=== PATIENT | female | born 1980 | race Caucasian/White ===

== ENCOUNTER 2017-02-09 06:12 | Inpatient (IN) | payer BC ==
[~2017-02-09 06:12] MED LIST: Buffered Lidocaine 0.9% SYRIN* 5 ML/SYR SYRINGE ONE; Clindamycin 900 MG IVPREMIX(* 900 MG/50 ML SDV IV ONE; Famotidine TAB* 20 MG ONE; Metoclopramide TAB* 10 MG ONE; ceFAZolin 2 GM PREMIX(*) 2 GM/50 ML BAG IVPB ONE
[2017-02-09] MEDS ORDERED: Heparin VIAL(*) 5000 UNITS/ML VIAL (FIVE THOUSAND) ONE (06:14)
[2017-02-09] MEDS ORDERED: ceFAZolin 2 GM PREMIX(*) 2 GM/50 ML BAG IVPB ONE (07:00)
[2017-02-09] MEDS ORDERED: ceFAZolin VIAL(*) 1 GM in NS 0.9% 50 ML* 50 ML IVPB ONE (07:30)
[2017-02-09] MEDS ORDERED: diPHENhydraMINE IV* 50 MG/ML 1 ml VIAL (BENADRYL) SLOW PUSH PRN (10:11)
[2017-02-09] MEDS ORDERED: Acetaminophen ADULT LIQ* 650 MG/20.3 ML UDC PO PRN (10:11)
[2017-02-09] MEDS ORDERED: HYDROmorphone* 1 MG/ML 1 ML SYR IV PRN ×2 (10:11)
[2017-02-09] MEDS ORDERED: HYDROcodone/ACET. 7.5/325 LIQ* 15 ML UDC PO PRN (10:11)
--- NOTE | 2017-02-09 10:20 | SURGPN ---
Brief Operative Note - Surgery Procedures: PREOP/POSTOP: MORBID OBESITY PROC: LRYGB SURG: MECENAS ASSIST: MECENAS ANES: GET; BYLEBYL EBL: 100ML IVF: 2.7 L LR SPEC: NONE DRAIN: NONE COMPL: NONE COND: STABLE TO RR; EXTUBATED. FINDINGS: NORMAL ANATOMY.
[2017-02-09] MEDS ORDERED: Acetaminophen IV 1GM/100ML * 100 ML ONE (10:26)
[2017-02-09] MEDS ORDERED: Ondansetron INJ* 2 MG/ML VIAL ONE (10:41)
[2017-02-09] MEDS ORDERED: Scopolamine 1.5 mg* PATCH ONE (10:41)
[2017-02-09] MEDS ORDERED: HYDROmorphone* 1 MG/ML 1 ML SYR ONE (11:11)
--- NOTE | 2017-02-09 12:30 | OP ---
CC: Gian Hou MD * DATE OF OPERATION: 02/09/17 - ROOM #353 DATE OF : 82 SURGEON: Pablo Dominguez MD ALTERNATIVE FINANCING SPECIALIST: Dr. Gamez. ANESTHESIOLOGIST: Dr. Aguila. ANESTHESIA: General endotracheal. PRE-OPERATIVE DIAGNOSIS: Morbid obesity. POST-OPERATIVE DIAGNOSIS: Morbid obesity. OPERATIVE PROCEDURE: Laparoscopic Jordi-en-Y gastric bypass. ESTIMATED BLOOD LOSS: 100 mL. IV FLUIDS: 2.7 L of crystalloid. SPECIMEN: None. DRAINS: None. COMPLICATIONS: None. COUNTS: The instrument, needle, and sponge counts were correct. DESCRIPTION OF PROCEDURE: The patient was brought to the operating room and placed on the table supine. Sequential compression devices were placed on both lower extremities. General anesthesia was administered. Camacho catheter was placed. The abdomen was prepped and draped in the usual sterile fashion and she received appropriate intravenous antibiotics. Time-out was performed. Local anesthetic was infiltrated into the skin and soft tissue prior to making each incision. Entry into the abdomen was through a left upper quadrant incision accommodating a 12-mm optical trocar. After accessing the peritoneal cavity, carbon dioxide was insufflated to a pressure of 15 mmHg. Under direct visualization, bladeless 12-mm trocars were placed supraumbilically in the midline and in the right upper quadrant. Bladeless 5-mm trocars were placed in the right upper quadrant medially and in the left upper quadrant laterally. A Huber liver retractor was placed percutaneously in the subxiphoid position and was used to elevate the left lobe of the liver. The gastric anatomy appeared normal. The cardia of the stomach was mobilized away from the left rios of the diaphragm using blunt dissection and LigaSure and after this was freed, a perigastric dissection was undertaken on the lesser curvature to enter the lesser sac. The gastric pouch was fashioned with several firings of the Endo REAL stapler with rao cartridges, the first going transversely across the stomach and the remaining firings were oriented towards the angle of His to create a pouch approximately 20 to 30 mL volume. The staple lines were noted to be intact and hemostatic. The omentum and transverse colon were retracted superiorly and the ligament of Treitz was identified. The jejunum was measured out 50 mm. At this point, the jejunum was sutured to the left lateral aspect of the gastric pouch. The gastric jejunostomy was performed using the 30 mm rao Endo REAL stapler. The side -to-side anastomosis was completed and then the common enterotomy was run closed with 3-0 Maxon over a 36-Yi orogastric tube. The loop was then divided to the left of the anastomosis to complete it and then the anastomosis was tested with methylene blue dye solution instilled through the orogastric tube. No leak was identified. The Jordi limb was then measured out for 75 cm and a functional end-to-side jejunojejunostomy was created with the 60 mm rao cartridge. The common enterotomy was again run closed with 3-0 Maxon and then the mesenteric defect closed with 3-0 silk in [id number] fashion. Lastly inspection revealed hemostasis to be excellent. The orientation of the bowel was confirmed and the liver retractor was then removed under direct visualization. Carbon dioxide was released. Skin incisions were closed with lupe and dressings applied. The patient tolerated the procedure well, was extubated and transferred to Recovery in a stable condition. [id number]/[facility] #: [id number] OSMEL
[2017-02-09] MEDS: Heparin VIAL(*) 5000 UNITS/ML VIAL (FIVE THOUSAND) SUBCUT SCH ×2 (14:58→21:30)
[2017-02-09] MEDS: Ketorolac INJ* 30 MG/ML 1 ML VIAL IV PRN (19:19)
[2017-02-09] MEDS: Ondansetron INJ* 2 MG/ML VIAL IV PRN (19:20)
[2017-02-10] MEDS: Heparin VIAL(*) 5000 UNITS/ML VIAL (FIVE THOUSAND) SUBCUT SCH ×3 (05:42→22:15)
[2017-02-10] MEDS: Ketorolac INJ* 30 MG/ML 1 ML VIAL IV PRN (05:49)
[2017-02-10] MEDS: Ondansetron INJ* 2 MG/ML VIAL IV PRN ×3 (05:56→22:15)
--- NOTE | 2017-02-10 08:48 | PN ---
Progress Note - Progress Note SOAP: Subjective: Feels ok. Pain controlled. Some nausea, no vomiting. Objective: [] Vital Signs Temp 98.3 F 02/10/17 04:12 Pulse 50 02/10/17 04:12 Resp 18 02/10/17 04:12 BP 114/61 02/10/17 04:12 Pulse Ox 98 02/10/17 04:12 NAD Abd: ND, soft, incis c/d/i, dressings intact. Tender in RUQ and epigastrium. Intake & Output 02/09/17 02/10/17 02/10/17 18:59 06:59 18:59 Intake Total 3400 1938 Output Total 375 2200 Balance 3025 -262 Weight 296 lb Intake: IV Fluids 3400 1938 LR 3400 1938 Oral 0 0 Output: Faith 375 2200 Other: # Bowel Movements 0 Assessment: POD#1 Plan: Adv diet. D/c faith. Amb. Home in am.
[2017-02-10] MEDS ORDERED: Famotidine IV* 10 MG/ML 2 ML (20 mg) ONE ×2 (10:48→23:20)
[2017-02-10] MEDS: D5W NS 0.9% 20Meq KCL 1000 ML* 1,000 ML IV SCH ×2 (12:18→22:15)
[2017-02-11] MEDS: Heparin VIAL(*) 5000 UNITS/ML VIAL (FIVE THOUSAND) SUBCUT SCH (05:35)
--- NOTE | 2017-02-11 08:19 | PN ---
Progress Note - Progress Note Date of Service: 02/11/17 SOAP: Subjective:POD#3 taking clears,ambulating,denies pain,passing flatus,wants to go home [] Objective:lungs:clear bilat heart:RRR Abd:+bs,soft,incisions C/D/I,no erythema; Ext:nontender Vital Signs Temp 98.0 F 02/11/17 03:46 Pulse 50 02/11/17 03:46 Resp 18 02/11/17 03:46 BP 113/58 02/11/17 03:46 Pulse Ox 95 02/11/17 03:46 Intake & Output 02/10/17 02/11/17 02/11/17 18:59 06:59 18:59 Intake Total 1244 1069 Output Total 450 1400 Balance 794 -331 Intake: IV Fluids 1034 909 D5W NS 20 meq KCL 909 LR 1034 IVPB 50 zofran 50 Oral 210 110 Output: Urine 450 1400 Camacho 0 Other: # Bowel Movements 0 [] Assessment:Doing well s/p lap gastric bypass [] Plan:Discharge today,instructions reviewed,OV 7-10days []
[2017-02-11 08:35] VITALS: BP 99/56
[2017-02-11] MEDS ORDERED: Famotidine IV* 10 MG/ML 2 ML (20 mg) ONE (10:40)
--- NOTE | 2017-02-12 06:32 | DS ---
CC: Dr. Gian Hou* DISCHARGE SUMMARY: DATE OF ADMISSION: 02/09/17 DATE OF DISCHARGE: 02/11/17 ATTENDING SURGEON: Dr. Pablo Dominguez. HOSPITAL COURSE: Please refer to admission history and physical for admission details. The patient was taken to the operating room on 02/09/17, and underwent laparoscopic Jordi-en-Y gastric bypass by Dr. Dominguez. She had an uneventful postoperative course and required minimal pain medication and was able to meet the criteria for oral intake of bariatric clear liquids. She was ambulating in the halls and using her Inspiron. She was seen earlier this morning by myself and Dr. Dominguez and she met criteria for discharge. PHYSICAL EXAMINATION: General: Well appearing, in no acute distress. Vital Signs: Stable, afebrile. O2 saturation on room air 95%. Lungs: Breath sounds bilaterally clear and equal. Heart: Regular rate and rhythm. No murmurs or rubs appreciated. Abdomen: Laparoscopic port sites are intact with surgical lupe. No drainage. No erythema, minimal ecchymosis; active bowel sounds, soft with minimal incisional tenderness. Extremities: No edema. Nontender calf. IMPRESSION: Postop day 2, status post laparoscopic Jordi-en-Y gastric bypass, doing extremely well. PLAN: Discharge home today. Instructions were reviewed with the patient. She will call our office to set up a followup visit within 1 week. She has a prescription for Lortab elixir as needed and may use [id number] liquid Tylenol for mild pain. CARMEN VELASCO, SACHI [id number]/[facility] #: [id number] OSMEL
== END 2017-02-11 11:45 | disposition home or self-care (01) | DRG 403 ==
LOC: AA 06:12 → SSU 12:01
PROVIDERS: ADMIT Surgery; ATTEND Surgery
PROC: 0D164ZA Bypass Stomach to Jejunum, Percutaneous Endoscopic Approach (ICD-10-PCS; principal; 2017-02-09 07:45)
DX: E66.01 Morbid (severe) obesity due to excess calories (principal); K76.0 Fatty (change of) liver, not elsewhere classified; Z68.41 Body mass index [BMI] 40.0-44.9, adult; R73.03 Prediabetes; K21.9 Gastro-esophageal reflux disease without esophagitis; M19.90 Unspecified osteoarthritis, unspecified site; F95.8 Other tic disorders; G25.2 Other specified forms of tremor; Z79.1 Long term (current) use of non-steroidal anti-inflammatories (NSAID); Z79.899 Other long term (current) drug therapy; Z83.3 Family history of diabetes mellitus; Z87.891 Personal history of nicotine dependence
CPT/HCPCS: 94760; A9270-GY; C1776; J0690; J1170; J1644; J1885; J2405

== ENCOUNTER 2017-05-15 19:04 | Emergency (ER) | payer BC ==
[2017-05-15] MEDS ORDERED: NS 0.9% 1000 ML* 1,000 ML IV ONE (19:35)
[2017-05-15 19:53] LABS: Hematocrit 41 % (35-47); Hemoglobin 14.1 g/dl (12.0-16.0); Mean Corpuscular HGB Conc 35 g/dl (31-36); Mean Corpuscular Hemoglobin 31 pg (27-31); Mean Corpuscular Volume 89 fL (80-97); Mean Platelet Volume 9 um3 (7.4-10.4); Red Blood Count 4.55 10^6/ul (4.0-5.4); Red Cell Distribution Width 14 % (10.5-15)
[2017-05-15 20:09] LABS: ALT 13 U/L (7-52); AST 12 U/L (13-39); Alkaline Phosphatase 39 U/L (34-104); Anion Gap 6 mmol/L (2-11); BUN/Creatinine Ratio 11.1 (8-20); Blood Urea Nitrogen 6 mg/dL (6-24); CO2 Carbon Dioxide 25 mmol/L (22-32); Calcium 9.5 mg/dL (8.6-10.3); Chloride 107 mmol/L (101-111); EGFR African American 164.3 (>60); EGFR Non-African American 127.7 (>60); Globulin 2.6 g/dL (2-4); Glucose 114 mg/dL (70-100); Lipase 14 U/L (11.0-82.0); Potassium 3.5 mmol/L (3.5-5.0); Sodium 138 mmol/L (133-145); Total Protein 6.6 g/dL (6.4-8.9)
[2017-05-15] MEDS ORDERED: Iohexol 300* (CONTRAST) 10 ML SDV IV ONE (20:25)
[2017-05-15 21:35] LABS: Urine Bilirubin Negative (Negative); Urine Glucose Negative (Negative); Urine Nitrite Negative (Negative)
--- NOTE | 2017-05-16 00:40 | ED ---
Ghassan Sky Angela, scribed for Masoud Teran on 05/15/17 at 1936 . Abdominal Pain/Female - HPI Summary HPI Summary: This pt is a 37 y/o female presenting to [facility] c/o lower left sided abd pain since last night. Pt report her pain is constant and radiates to her legs. She notes associated symptoms of nausea and vomiting, she had 1 episode of emesis last night. Her pain is aggravated with ambulation. She rates her pain at its best 6 out of 10 in severity, and at its worse 10 out of 10 in severity. Pt denies diarrhea, hematuria, vaginal discharge, fever, chest pain, SOB. PSHx: gastric bypass on 02/09/17 at [facility]. - History of Current Complaint Chief Complaint: EDAbdPain Stated Complaint: STOMACH/LEG PAIN Time Seen by Provider: 05/15/17 19:26 Hx Obtained From: Patient ?: No Onset/Duration: Lasting Days - 1 Timing: Days - 1 Pain Intensity: 6 Pain Scale Used: 0-10 Numeric Location: Discrete At: LLQ Radiates: Yes Radiates to: Other - legs Character: Cramping Aggravating Factor(s): Other: - ambulating Associated Signs and Symptoms: Positive: Nausea, Vomiting, Other: - radiating to her legs. Negative: Fever, Chest Pain, Back Pain, Urinary Symptoms, Vaginal Bleeding, Vaginal Discharge, Diarrhea Allergies/Adverse Reactions: Allergies Allergy/AdvReac Type Severity Reaction Status Date / Time No Known Allergies Allergy Verified 05/15/17 19:13 PMH/Surg Hx/FS Hx/Imm Hx Endocrine/Hematology History: Denies: Hx Anticoagulant Therapy, Hx Diabetes, Hx Thyroid Disease Cardiovascular History: Denies: Hx Congestive Heart Failure, Hx Hypertension, Hx Pacemaker/ICD Respiratory History: Denies: Hx Asthma, Hx Chronic Obstructive Pulmonary Disease (COPD) History: Denies: Hx Renal Disease Musculoskeletal History: Reports: Hx Arthritis - KNEES Sensory History: Reports: Hx Contacts or Glasses - GLASSES Denies: Hx Hearing Aid Opthamlomology History: Reports: Hx Contacts or Glasses - GLASSES Neurological History: Reports: Other Neuro Impairments/Disorders - TIC- UPPER HALF OF BODY SHAKES LASTS A COUPLE OF SECONDS Denies: Hx Dementia, Hx Seizures Psychiatric History: Denies: Hx Panic Disorder, Hx Substance Abuse - Surgical History Surgery Procedure, Year, and Place: left ankle x2, gastric bypass. Hx Anesthesia Reactions: No Infectious Disease History: No Infectious Disease History: Denies: Hx Hepatitis, Hx Human Immunodeficiency Virus (HIV), Traveled Outside the [place] in Last 30 Days - Family History Known Family History: Positive: Diabetes - father, Other - Mother: brain tumor - Social History Alcohol Use: Rare Hx Substance Use: No Substance Use Type: Reports: None Hx Tobacco Use: Yes Smoking Status (MU): Former Smoker Amount Used/How Often: 1 PPD X 2 YEARS Have You Smoked in the Last Year: No Review of Systems Negative: Fever, Chills Negative: Chest Pain Negative: Shortness Of Breath Positive: Abdominal Pain, Vomiting, Nausea. Negative: Diarrhea Negative: dysuria, hematuria, other - vaginal discharge Positive: Other - pain radiating to her legs All Other Systems Reviewed And Are Negative: Yes Physical Exam Triage Information Reviewed: Yes Vital Signs On Initial Exam: Initial Vitals Temp Pulse Resp BP Pulse Ox 98.9 F 77 16 99/72 99 05/15/17 19:13 05/15/17 19:13 05/15/17 19:13 05/15/17 19:13 05/15/17 19:13 Vital Signs Reviewed: Yes Appearance: Positive: Well-Appearing, Pain Distress Skin: Positive: Warm, Skin Color Reflects Adequate Perfusion, Dry Head/Face: Positive: Normal Head/Face Inspection Eyes: Positive: EOMI, HERMINIO ENT: Positive: Normal ENT inspection Neck: Positive: Supple, Nontender Respiratory/Lung Sounds: Positive: Clear to Auscultation, Breath Sounds Present Cardiovascular: Positive: RRR, Pulses are Symmetrical in both Upper and Lower Extremities Abdomen Description: Positive: Soft, Other: - LLQ tenderness Bowel Sounds: Positive: Present Musculoskeletal: Positive: Normal, Strength/ROM Intact Neurological: Positive: Normal, Sensory/Motor Intact, Alert, Oriented to Person Place, Time - Luis Coma Scale Coma Scale Total: 15 Diagnostics - Vital Signs Vital Signs Temp Pulse Resp BP Pulse Ox 05/15/17 19:13 98.9 F 77 16 99/72 99 - Laboratory Result Diagrams: 05/15/17 19:44 05/15/17 19:44 Lab Statement: Any lab studies that have been ordered have been reviewed, and results considered in the medical decision making process. - CT Abd/pel CT CT Interpretation: Positive (See Comments) - IMPRESSION: 5 cm left ovarian cyst , advise further evaluation with ultrasound. Small complex physiologic free fluid cul-de-sac, probably physiologic. Surgical changes stomach. No bowel obstruction, colitis, diverticulitis, or free air. Normal appendix. Unremarkable pancreas, kidneys, and gallbladder. ED physician has reviewed this radiology report and agrees. CT Interpretation Completed By: Radiologist - Additional Comments Diagnostic Additional Comments: Pelvic US Impression: 5.1 cm hemorrhagic cyst left ovary, advise followup in 6 or 10 weeks to assess for resolution. No left ovarian torsion. Color flow with appropriate arterial and venous waveforms. Right ovary not seen. Small physiologic free fluid cul-de-sac. 2.4 cm posterior fundal fibroid in uterus. Endometrial stripe complex 20 mm thick. Unremarkable visualized portion of bladder. ED physician has reviewed this radiology report and agrees. Abdominal Pain Fem Course/Dx - Course Course Of Treatment: Pt is a 37 y/o female presenting to [facility] c/o lower left sided abd pain since last night with radiation to her legs. She notes associated symptoms of nausea and vomiting. Bloodwork and abdomen/pelvis CT were obtained. CT shows 5 cm left ovarian cyst, advise further evaluation with ultrasound. US shows 5.1 cm hemorrhagic cyst left ovary. pt will be discharge with follow up from [facility]. - Diagnoses Provider Diagnoses: Ovarian cyst, Abdominal pain Discharge - Discharge Plan Condition: Stable Disposition: HOME Patient Education Materials: Ovarian Cyst (ED) Referrals: Gian Hou MD [Primary Care Provider] - Tatianna Payton MD [Medical Doctor] - Additional Instructions: Please follow up with Dr. Payton, from [facility]. The documentation as recorded by the Ghassan womack Angela accurately reflects the service I personally performed and the decisions made by , Masoud Teran.
[2017-05-16 01:07] VITALS: BP 105/70
--- NOTE | 2017-05-16 07:46 | RAD ---
CLINICAL HISTORY: Diverticulitis COMPARISON: April 21, 2017 TECHNIQUE: Multiple contiguous axial CT scans were obtained of the abdomen and pelvis after the administration of intravenous contrast. Coronal and sagittal multiplanar reformations are submitted for review. Oral contrast was administered. Delayed images were obtained through the abdomen and pelvis. FINDINGS: LUNG BASES: The lung bases are clear. LIVER: The liver is diffusely low in attenuation compared to the spleen. There are no focal hepatic parenchymal masses. The liver is enlarged measuring 23 cm in long axis. BILE DUCTS: There is no intrahepatic or extrahepatic biliary dilatation. GALLBLADDER: The gallbladder is normal, without pericholecystic inflammatory change. PANCREAS: The pancreas is normal, without mass or ductal dilatation. SPLEEN: The spleen is mildly enlarged measuring 14.5 x 13 x 6 cm in size. UPPER GI TRACT: Evaluation of the gastrointestinal tract is limited by incomplete gastric distention. There is post surgical change to the upper GI tract SMALL BOWEL AND MESENTERY: The small bowel is normal in contour, course, and caliber. There is no obstruction or dilatation. COLON: The colon is normal in contour, course, caliber. There is no pericolonic inflammatory change. A normal appendix this is best seen on axial images 57-62 ADRENALS: Normal bilaterally. KIDNEYS: The kidneys are normal in shape, size, contour, and axis. There is no hydronephrosis or nephrolithiasis. BLADDER: The bladder is smooth in contour. PELVIC ORGANS: There is a 5.2 cm left ovarian cyst. There is a small amount of fluid within the pelvic cul-de-sac measuring approximately 30 Hounsfield units in attenuation AORTA: The aorta is normal. IVC: Unremarkable LYMPH NODES: There is no lymphadenopathy by size criteria. ABDOMINAL WALL: There is no evidence for abdominal wall hernia. BONES AND SOFT TISSUES: Unremarkable OTHER: None IMPRESSION: 1. 5.2 CM LEFT OVARIAN CYST WITH A SMALL AMOUNT OF FREE FLUID IN PELVIC CUL-DE-SAC. THIS IS INTERMEDIATE ATTENUATION AND MAY REFLECT SMALL AMOUNT OF HEMOPERITONEUM, INCLUDING FROM RUPTURED CYST. 2. FATTY INFILTRATION OF THE LIVER. 3. HEPATOSPLENOMEGALY
--- NOTE | 2017-05-16 07:52 | RAD ---
INDICATION: Left pelvic pain COMPARISON: Same day CT of the abdomen and pelvis TECHNIQUE: Real-time transabdominal and transvaginal ultrasound examination of the female pelvis including grayscale and Doppler color flow imaging. FINDINGS: Uterus: Transabdominal ultrasound reveals the uterus to measure 11.2 x 5.8 x 6.7 cm. At the posterior fundal height myometrium there is a low echogenicity focus measuring 2.4 cm in greatest dimension most consistent with a small uterine fibroid. Endometrial stripe measures up to 2 cm in thickness. Ovaries: Right ovary is not discretely visualized. Within the left ovary there is an avascular mostly anechoic structure with echogenic material layering dependently that measures 5.0 x 5.1 x 5.0 cm. Normal arterial and venous waveforms are identified overlying the left ovary. There is moderate free fluid in the cul-de-sac. IMPRESSION: 1. Sonographic findings are most consistent with hemorrhagic transformation of a large left ovarian follicle with subsequent free fluid in the cul-de-sac. This is not necessarily pathologic in a woman of reproductive age. 2. Likely small posterior uterine fibroid.
== END 2017-05-16 01:12 | disposition home or self-care (01) ==
LOC: ED 19:04
DX: N83.209 Unspecified ovarian cyst, unspecified side (principal); R10.32 Left lower quadrant pain; R11.2 Nausea with vomiting, unspecified; Z87.891 Personal history of nicotine dependence
CPT/HCPCS: 36415; 74177; 76856; 80053; 81003; 83605; 83690; 84702; 85025; 85610; 85730; 99283; Q9967

== ENCOUNTER 2018-01-27 17:35 | Observation (INO) | payer BC ==
[2018-01-27] MEDS ORDERED: Metoclopramide IV* 5 MG/ML 2 ML VIAL IV SLOW PU ONE (17:49)
[2018-01-27] MEDS ORDERED: NS 0.9% 1000 ML* 1,000 ML IV ONE ×2 (17:49→19:05)
[2018-01-27] MEDS ORDERED: Morphine VIAL* 4 MG/ML VIAL (1 ml vial) IV ONE ×2 (17:50→20:20)
--- NOTE | 2018-01-27 17:52 | ED ---
GI/ HPI - HPI Summary HPI Summary: 37F at 6 weeks presents with abdominal pain since this morning. She states the pain starts in her left lower quadrant and then radiates to her left flank and down her left leg. She has history of ovarian cysts. She never had this pain before. She denies any hematuria or dysuria. She denies any urgency or frequency. no history of kidney stones. She denies any abnormal vaginal bleeding. She has not had an ultrasound yet for this . She denies any diarrhea constipation. She admits to nausea and vomiting. has history of back pain but not in this location. Movement makes the pain worse. She denies any injury. She denies any loss of bowel or bladder. She denies any saddle anesthesia. She denies any numbness or tingling going on leg. She did have gastric bypass a year ago. She denies any other belly surgeries. No history of diverticulitis. She hasn't taking anything for her symptoms. She has not been able to keep anything down. She denies any dizziness. She denies any chest pain or shortness breath. She denies any recent illness. - History of Current Complaint Chief Complaint: EDAbdPain Time Seen by Provider: 01/27/18 17:40 Stated Complaint: ABD PAIN Pain Intensity: 10 - Additional Pertinent History Primary Care Physician: [id number] - Allergy/Home Medications Allergies/Adverse Reactions: Allergies Allergy/AdvReac Type Severity Reaction Status Date / Time No Known Allergies Allergy Verified 01/27/18 17:37 PMH/Surg Hx/FS Hx/Imm Hx Endocrine/Hematology History: Denies: Hx Anticoagulant Therapy, Hx Diabetes, Hx Thyroid Disease Cardiovascular History: Denies: Hx Congestive Heart Failure, Hx Hypertension, Hx Pacemaker/ICD Respiratory History: Denies: Hx Asthma, Hx Chronic Obstructive Pulmonary Disease (COPD) History: Denies: Hx Renal Disease Musculoskeletal History: Reports: Hx Arthritis - KNEES Sensory History: Reports: Hx Contacts or Glasses - GLASSES Denies: Hx Hearing Aid Opthamlomology History: Reports: Hx Contacts or Glasses - GLASSES Neurological History: Reports: Other Neuro Impairments/Disorders - TIC- UPPER HALF OF BODY SHAKES LASTS A COUPLE OF SECONDS Denies: Hx Dementia, Hx Seizures Psychiatric History: Denies: Hx Panic Disorder, Hx Substance Abuse - Surgical History Surgery Procedure, Year, and Place: left ankle x2, gastric bypass. Hx Anesthesia Reactions: No Infectious Disease History: No Infectious Disease History: Denies: Hx Hepatitis, Hx Human Immunodeficiency Virus (HIV), Traveled Outside the [place] in Last 30 Days - Family History Known Family History: Positive: None, Diabetes - father, Other - Mother: brain tumor - Social History Alcohol Use: Rare Hx Substance Use: No Substance Use Type: Reports: None Hx Tobacco Use: Yes Smoking Status (MU): Former Smoker Amount Used/How Often: 1 PPD X 2 YEARS Have You Smoked in the Last Year: No Review of Systems Negative: Fever Positive: Abdominal Pain, Vomiting, Nausea. Negative: Diarrhea Positive: flank pain All Other Systems Reviewed And Are Negative: Yes Physical Exam Triage Information Reviewed: Yes Vital Signs On Initial Exam: Initial Vitals Temp Pulse Resp BP Pulse Ox 98 F 72 20 120/71 97 01/27/18 17:38 01/27/18 17:38 01/27/18 17:38 01/27/18 17:38 01/27/18 17:38 Vital Signs Reviewed: Yes Appearance: Positive: Pain Distress Skin: Positive: Warm, Dry Head/Face: Positive: Normal Head/Face Inspection Eyes: Positive: Normal, Conjunctiva Clear Respiratory/Lung Sounds: Positive: Clear to Auscultation, Breath Sounds Present Cardiovascular: Positive: Normal, RRR Abdomen Description: Positive: Soft, CVA Tenderness (L), Other: - tenderness LLQ Bowel Sounds: Positive: Present Musculoskeletal: Positive: Strength/ROM Intact - back, Other - no midline tenderness back, neg SLR, good sensation, good pulses Neurological: Positive: Normal Psychiatric: Positive: Normal Diagnostics - Vital Signs Vital Signs Temp Pulse Resp BP Pulse Ox 01/27/18 17:38 98 F 72 20 120/71 97 - Laboratory Result Diagrams: 01/27/18 21:37 01/27/18 17:51 Lab Statement: Any lab studies that have been ordered have been reviewed, and results considered in the medical decision making process. - Ultrasound No standard instances Ultrasound Interpretation: Positive (See Comments) - IMPRESSION: Single intrauterine gestation with a gestational age of 9 weeks 4 days with heart activity at 192 bpm. There is enlarged left ovary with very minimal detectable flow suggestive of left ovarian torsion. Ultrasound Interpretation Completed By: Radiologist Re-Evaluation - Re-Evaluation First Eval Re-Evaluation Time: 18:53 Change: Improved Comment: no longer nausous, pain is less Second Eval Re-Evaluation Time: 21:00 Change: Worse Comment: pain has increased again Third Eval Re-Evaluation Time: 23:11 Change: Worse Comment: still in pain, dr puri will admit for fluids GIGU Course/Dx - Course Course Of Treatment: 37F at 6 weeks presents with abdominal pain for past day. She states the pain starts in her left lower quadrant and then radiates to her left flank and down her leg. She has history of ovarian cysts. She never had this pain before. She denies any hematuria or dysuria. She denies any urgency or frequency. She denies any abnormal vaginal bleeding. She has not had an ultrasound yet for this . She denies any diarrhea constipation. She admits to nausea and vomiting. has history of back pain but not in this location. Movement makes the pain worse. She denies any injury. She denies any loss of bowel or bladder. She denies any saddle anesthesia. She denies any numbness or tingling going on leg. She did have gastric bypass a year ago. She denies any other belly surgeries. No history of diverticulitis. She hasn't taking anything for her symptoms. She has not been able to keep anything down. She denies any dizziness. She denies any chest pain or shortness breath. She denies any recent illness. on exam tenderness left flank and LLQ, neurovascular intact. labs wbc 11.4. hcg [id number]. u/s shows intrauterine gestation with gestation age of 9 weeks 4 days with fetla heart activity at 192 bpm. enlarge left ovary with minimial detectable flow suggestion of left ovarian torison. spoke with dr puri. states that likely round ligament pain. states symptoms not suggestive of a torison and u/ s does not sound like a torison. recommends repeat u/s. repeat u/s still shows trace flow and radiologist still reading it as torison. spoke with dr puri again who will see in ED. 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 with reevaulation patient still in pain. dr puri will admit for iv fluids. - Diagnoses Differential Diagnoses - Female: Ectopic , Ovarian Cyst, Ovarian Torsion, Provider Diagnoses: Intrauterine , Left ovarian cyst, Incarcerated gravid uterus - Physician Notifications Discussed Care Of Patient With: Shannon Puri Time Discussed With Above Provider: 20:50 - findings not suggestive for torison , recommend repeat u/s Discharge - Sign-Out/Discharge Documenting (check all that apply): Discharge/Admit/Transfer - Discharge Plan Condition: Stable Disposition: ADMITTED TO [facility] Referrals: Gian Hou MD [Primary Care Provider] - - Billing Disposition and Condition Condition: STABLE Disposition: Admitted to [facility]
[2018-01-27 18:48] LABS: ABS Basophils 0 10^3/ul (0-0.2); ABS Eosinophils 0 10^3/ul (0-0.6); ABS Lymphocytes 0.5 10^3/ul (1.0-4.8); ABS Monocytes 0.3 10^3/ul (0-0.8); ABS Neutrophils 10.6 10^3/ul (1.5-7.7); ABS Nucleated RBC 0 10^3/ul; Eosinophil % 0.1 % (0-6); Hematocrit 44 % (35-47); Hemoglobin 14.8 g/dl (12.0-16.0); Lymphocyte % 4.7 % (25-47); Mean Corpuscular HGB Conc 34 g/dl (31-36); Mean Corpuscular Hemoglobin 30 pg (27-31); Mean Corpuscular Volume 88 fL (80-97); Mean Platelet Volume 8.4 um3 (7.4-10.4); Nucleated Red Blood Cells % 0; Platelet Count 292 10^3/ul (150-450); Red Blood Count 4.94 10^6/ul (4.0-5.4); Red Cell Distribution Width 13 % (10.5-15); White Blood Count 11.4 10^3/ul (3.5-10.8)
[2018-01-27 18:56] LABS: INR 1.07 (0.77-1.02)
[2018-01-27 18:58] LABS: EGFR Non-African American 142.9 (>60)
[2018-01-27 19:01] LABS: Urine Appearance Clear; Urine Blood Negative (Negative); Urine Color Yellow; Urine Ketones 2+ (Negative); Urine Protein 1+(30 mg/dL) (Negative); Urine Specific Gravity 1.031 (1.010-1.030); Urine Urobilinogen Negative (Negative)
--- NOTE | 2018-01-27 20:17 | RAD ---
Indication: Left lower quadrant pain. Real-time sonography of the was performed. There is a single intrauterine gestation present. The mean crown-rump length is 2.7 cm corresponding to gestational age of 9 weeks 4 days. heart activity is noted at 192 bpm. The right ovary is not visualized. The left ovary is enlarged measuring 5.3 x 4.0 x 4.1 cm. A cyst is noted measuring up to 1.4 cm. Minimal detectable flow is noted in the left ovary. This is suspicious for portion of the left ovary. The patient is tender in this area. IMPRESSION: Single intrauterine gestation with a gestational age of 9 weeks 4 days with heart activity at 192 bpm. There is enlarged left ovary with very minimal detectable flow suggestive of left ovarian torsion. Annalisa CAMARGO was notified of the results at 2013 hours
--- NOTE | 2018-01-27 20:18 | RAD ---
Indication: Left flank pain. Real-time sonography of the left kidney was performed. The left kidney measures 13.2 x 5.7 x 7.4 cm. No hydronephrosis of the left kidney is noted. IMPRESSION: No hydronephrosis of left kidney is noted.
[2018-01-27] MEDS ORDERED: Ondansetron TAB* 4 MG PO ONE (23:10)
[2018-01-28] MEDS ORDERED: Ondansetron 40 MG VIAL* 2 MG/ML 20 ML VIAL IV PRN (02:34)
[2018-01-28] MEDS: Acetaminophen TAB* 325 MG PO PRN ×4 (03:07→23:20)
[2018-01-28 06:54] LABS: ABS Basophils 0 10^3/ul (0-0.2); ABS Eosinophils 0.1 10^3/ul (0-0.6); ABS Lymphocytes 1.4 10^3/ul (1.0-4.8); ABS Neutrophils 7.7 10^3/ul (1.5-7.7); ABS Nucleated RBC 0 10^3/ul; Eosinophil % 0.7 % (0-6); Hematocrit 35 % (35-47); Hemoglobin 12.3 g/dl (12.0-16.0); Lymphocyte % 14.1 % (25-47); Mean Corpuscular HGB Conc 35 g/dl (31-36); Mean Corpuscular Hemoglobin 30 pg (27-31); Mean Corpuscular Volume 88 fL (80-97); Mean Platelet Volume 8.2 um3 (7.4-10.4); Nucleated Red Blood Cells % 0; Platelet Count 217 10^3/ul (150-450); Red Blood Count 4.04 10^6/ul (4.0-5.4); Red Cell Distribution Width 13 % (10.5-15); White Blood Count 10.3 10^3/ul (3.5-10.8)
[2018-01-28] MEDS: fentaNYL* 50 MCG/ML 2 ML VIAL (100 MCG VIAL) IV PRN ×2 (10:47→17:53)
--- NOTE | 2018-01-28 12:29 | PN ---
Progress Note - Progress Note Date of Service: 01/28/18 Note: S: called to evaluate pt due to increased pain. She says the pain was about a 3 /10 overnight but increased this morning to 9/10. Decreased to about 6/10 after receiving fentanyl. No appetite now but did eat breakfast ok this am at 8 :30. THe pain suddenly increased. It is still LLQ pain as it has been all along. Pain not relieved by knee-chest position Exam: Abd: tender, ayse LLQ. Sono: preliminary read: minimal blood flow to left ovary, further enlarged since last night. A: 9wk IUP with suspected ovarian torsion. Uncertain about keeping the P: will plan for surgical evaluation and possible LO. Pt agreeable to plan. Will not consider surgical termination in conjunction with this procedure today as she is in severe pain and not the best time to make a big decision.
--- NOTE | 2018-01-28 12:40 | RAD ---
INDICATION: Persistent left lower quadrant pain. Clinical suspicion for left ovarian torsion. COMPARISON: Pelvic ultrasound acquired January 27, 2018 TECHNIQUE: Real time ultrasound images of the left ovary were acquired with au scale and Doppler color flow imaging. FINDINGS: Unless otherwise specified comparisons below reference the January 27, 2018 pelvic ultrasound. According to the jail manager, Dr. Gayle was present during image acquisition. The left ovary measure 7.2 x 5.9 x 4.9 cm and increased from 5.3 x 4.0 x 4.1 cm on the previous ultrasound. Overall there is reduced vascularity of the left ovary. Only pulsatile arterial waveforms can be recorded. There appears to be absence of steady venous flow. There is trace fluid surrounding the ovary. Within the ovary there is a 2.5 cm anechoic structure most likely a corpus luteum in this woman. IMPRESSION: Sonographic findings of the left ovary are suspicious for ovarian torsion as there is loss of venous waveform, interval increase in size from the previous days ultrasound as well as interval appearance of trace surrounding fluid. Findings were discussed over the telephone with Dr. Gayle 1236 hours on January 28, 2018.
[2018-01-28] MEDS ORDERED: Propofol* 10 MG/ML 20 ML BTL IV PUSH ONE (13:20)
[2018-01-28] MEDS ORDERED: fentaNYL* 50 MCG/ML 2 ML VIAL (100 MCG VIAL) ONE ×3 (13:20→14:28)
[2018-01-28] MEDS ORDERED: Succinylcholine* 20 MG/ML 10 ML VIAL ONE (13:20)
[2018-01-28] MEDS ORDERED: Bupivacaine 0.25% SDV* 30 ML ONE (13:27)
[2018-01-28] MEDS ORDERED: Atracurium* 10 MG/ML 10 ML VIAL ONE (13:45)
[2018-01-28] MEDS ORDERED: Dexamethasone IV* 4 MG/ML 1 ML (4 MG) ONE (14:11)
[2018-01-28] MEDS ORDERED: HYDROmorphone INJ* 2 MG/ML CARPUJECT SYRINGE IV PRN (14:43)
[2018-01-28] MEDS ORDERED: fentaNYL* 50 MCG/ML 2 ML VIAL (100 MCG VIAL) IV PRN (14:43)
[2018-01-28] MEDS ORDERED: Naloxone* 0.4 MG/ML 1 ML VIAL IV PRN (14:43)
[2018-01-28] MEDS ORDERED: Ondansetron ODT TAB* 4 MG PO PRN (14:43)
[2018-01-28] MEDS ORDERED: DiMENhydriNATE IV* 50 MG/ML VIAL IV PUSH PRN (14:43)
[2018-01-28] MEDS ORDERED: Neostigmine Methylsulfate* 1 MG/ML 10 ML VIAL (1 mg/ml) ONE (14:55)
[2018-01-28] MEDS ORDERED: Glycopyrrolate IV* 0.2 MG/ML 1 ML VIAL ONE (14:55)
[2018-01-28] MEDS ORDERED: DiMENhydriNATE IV* 50 MG/ML VIAL ONE (14:58)
[2018-01-28] MEDS ORDERED: Ibuprofen TAB* 600 MG PO PRN (15:39)
[2018-01-28] MEDS: oxyCODONE/Acetamin 5/325 MG* TAB PO PRN (19:19)
[2018-01-29] MEDS: oxyCODONE/Acetamin 5/325 MG* TAB PO PRN ×2 (03:09→10:01)
--- NOTE | 2018-01-29 06:30 | OP ---
OPERATIVE NOTE: DATE OF OPERATION: 01/28/18. DATE OF ADMISSION: 01/27/18. DATE OF : 82. SURGEON: Angella Gayle MD EQUIPMENT PROCESSER STORAGE: Dr. Santiago. PRE-OP DIAGNOSIS: Left lower quadrant pain, suspected ovarian torsion. POST-OP DIAGNOSIS: Left ovarian torsion. OPERATIVE PROCEDURE: Diagnostic laparoscopy and reduction of left ovarian torsion. ESTIMATED BLOOD LOSS: Minimal. FLUIDS: Crystalloid. FINDING: Enlarged torsed left ovary and tube, apparent viable ovarian tissue noted. No evidence of a right ovary or tube. SPECIMEN: None. COUNTS: All correct. DESCRIPTION OF PROCEDURE: After informed consent was signed, the patient was taken to the operating room where she was given general anesthesia that was found to be adequate. She was prepped and draped in the dorsal lithotomy position in Porter stirrups. A sponge stick was inserted into the vagina to use as a uterine manipulator. The infraumbilical fold was grasped with Allis clamp and injected with Marcaine. A 10-mm incision was made in the umbilicus. A combination of sharp and blunt dissection was used to dissect down through multiple layers until the fascia was reached. The fascia was grasped with Shawn clamps and incised in midline with Gabriel scissors. A suture of 0 Vicryl was inserted on either side as a stay suture. Dissection was continued until the peritoneum was entered. The trocar was inserted and the abdomen was insufflated. Visualization of the abdominal cavity revealed a slightly enlarged , but otherwise normal-appearing uterus. No evidence of a right ovary or tube. Enlarged, edematous left ovary with torsion of the ovary and tube. Normal appearing upper abdomen. Two 5mm lateral ports were placed under direct visualization. The left ovary was pulled from behind the uterus and untwisted. After this was done, viable appearing ovarian tissue was noted. By the end of the procedure, the ovary and even the tube became more pink with less swelling. Thorough exploration of the right side of the uterus and the right pelvic side wall revealed no evidence of functioning ovarian tissue. Therefore , the decision was made to not remove the left ovary. It was carefully placed back into the posterior cul-de-sac behind the uterus. Suctioning of the abdominal cavity was done. The lateral ports were removed under direct visualization. The abdomen was desufflated and the umbilical port was then removed. The fascia was closed with 0 Vicryl. A subcuticular suture was placed and the skin was closed with 4-0 Monocryl in a running subcuticular fashion. The incision was cleaned. The side ports were closed with one suture of 4-0 Monocryl. Mastisol and Steri-Strips were placed. The patient was placed back in the supine position, awakened from anesthesia and moved to recovery room in stable condition. [id number]/[facility] #: [id number] [facility]ATR[facility] CENTERClaribel
[2018-01-29] MEDS ORDERED: Docusate CAP* 100 MG PO PRN (06:59)
--- NOTE | 2018-01-29 07:06 | DCNOTE ---
S: pt feeling better today. Very minimal pain while at rest. C/o more pain with movement. OOB to bathroom frequently. Says she feels some urinary pressure but no dysuria. Tigre PO w/out nausea. Slept ok overnight. AVSS Gen: NAD Abd: soft, mildly tender. Incisions clean and dry Ext: neg calf tenderness, neg edema A: POD#1 s/p Dx Lap and de-torsion of left ovary, 9wks . Doing well P: D/C home Has f/u visit schedule with Dr. Mckeon already.
--- NOTE | 2018-01-29 07:08 | DS ---
Admit Dx: LLQ pain, 9wks D/C dx: Left ovarian torsion, 9wks Hospital course: after increasing LLQ pain repeat sono was c/w ovarian torsion so pt underwent surgery. She had an unremarkable recovery and was discharge pod #1 Procedures: Diagnostic laparoscopy with reduction of left ovarian torsion D/C dispostion: Home Instructions written and reviewed with pt.
[2018-01-29 07:45] VITALS: BP 95/59
[2018-01-29 07:45] LABS: Urine Appearance Clear; Urine Blood Negative (Negative); Urine Color Yellow; Urine Ketones Negative (Negative); Urine Protein Negative (Negative); Urine Specific Gravity 1.012 (1.010-1.030); Urine Urobilinogen Positive (Negative)
== END 2018-01-29 11:10 | disposition home or self-care (01) ==
LOC: ED 17:35 → SSU 01-28 00:26
PROVIDERS: ADMIT Obstetrics & Gynecology; ATTEND Obstetrics & Gynecology
DX: N83.512 Torsion of left ovary and ovarian pedicle (principal); O26.891 Other specified pregnancy related conditions, first trimester; R10.32 Left lower quadrant pain; Z3A.09 9 weeks gestation of pregnancy
CPT/HCPCS: 36415; 76775; 76817; 76857; 80053; 81003; 81015; 83690; 84702; 85025; 85048; 85610; 85730; 86140; 86900; 86901; 87077; 87086; 96374; 99284; A9270-GY; G0378; J0330; J1100; J1240; J2270; J2704; J2710; J2765; J3010

== ENCOUNTER 2018-01-30 21:21 | Emergency (ER) | payer BC ==
[2018-01-30] MEDS ORDERED: Morphine INJ* 10 MG/ML 1 ML CARPUJECT IV ONE (22:04)
[2018-01-30] MEDS ORDERED: Metoclopramide IV* 5 MG/ML 2 ML VIAL IV SLOW PU ONE (22:06)
[2018-01-30] MEDS ORDERED: Morphine VIAL* 4 MG/ML VIAL (1 ml vial) IV ONE ×3 (22:09→22:58)
[2018-01-30] MEDS ORDERED: Metoclopramide IV* 5 MG/ML 2 ML VIAL ONE (22:09)
[2018-01-30 22:26] LABS: ABS Basophils 0 10^3/ul (0-0.2); ABS Eosinophils 0.1 10^3/ul (0-0.6); ABS Lymphocytes 1.4 10^3/ul (1.0-4.8); ABS Monocytes 0.9 10^3/ul (0-0.8); ABS Neutrophils 9.3 10^3/ul (1.5-7.7); ABS Nucleated RBC 0 10^3/ul; Eosinophil % 1.1 % (0-6); Hematocrit 37 % (35-47); Hemoglobin 12.6 g/dl (12.0-16.0); Lymphocyte % 11.8 % (25-47); Mean Corpuscular HGB Conc 34 g/dl (31-36); Mean Corpuscular Hemoglobin 30 pg (27-31); Mean Corpuscular Volume 88 fL (80-97); Mean Platelet Volume 8.1 um3 (7.4-10.4); Nucleated Red Blood Cells % 0; Platelet Count 258 10^3/ul (150-450); Red Cell Distribution Width 13 % (10.5-15); White Blood Count 11.7 10^3/ul (3.5-10.8)
[2018-01-30 22:42] LABS: EGFR Non-African American 166.1 (>60)
[2018-01-30] MEDS ORDERED: Methylergonovine INJ* 0.2 MG/ML 1ML AMP IM ONE (23:23)
[2018-01-30 23:50] VITALS: BP 108/65
--- NOTE | 2018-01-31 00:01 | ED ---
Magdy Sky Stephanie, scribed for Leslie Minor MD on 01/30/18 at 2222 . Abdominal Pain/Female - HPI Summary HPI Summary: The pt is a 37 y/o F presenting to the ED with c/o abd pain that began at 21:00 today. Symptoms include nausea. The pt denies vomiting and back pain. The pt had surgery to correct ovarian torsion on 01/28/18 and was discharged on 01/29/18. Today she states she had a sudden loss of blood from the vagina. The pt is approximately 10 weeks . - History of Current Complaint Chief Complaint: EDGeneral Stated Complaint: ABNORMAL BLEEDING Time Seen by Provider: 01/30/18 21:51 Hx Obtained From: Patient, Family/Medication Specialist - partner ?: Yes Onset/Duration: Sudden Onset, Lasting Hours, Still Present Timing: Constant Severity Currently: Severe Pain Intensity: 10 Pain Scale Used: 0-10 Numeric Location: Suprapubic Radiates: No Aggravating Factor(s): Nothing Alleviating Factor(s): Nothing Associated Signs and Symptoms: Positive: Nausea. Negative: Back Pain, Vomiting Allergies/Adverse Reactions: Allergies Allergy/AdvReac Type Severity Reaction Status Date / Time No Known Allergies Allergy Verified 01/27/18 17:37 Home Medications: Home Medications Pediatric Multivit No.50/Dha [Flintstones Gummies Plus] 1 chw PO DAILY 01/30/18 [History Confirmed 01/30/18] PMH/Surg Hx/FS Hx/Imm Hx Endocrine/Hematology History: Denies: Hx Anticoagulant Therapy, Hx Diabetes, Hx Thyroid Disease Cardiovascular History: Denies: Hx Congestive Heart Failure, Hx Hypertension, Hx Pacemaker/ICD Respiratory History: Denies: Hx Asthma, Hx Chronic Obstructive Pulmonary Disease (COPD) History: Denies: Hx Renal Disease Musculoskeletal History: Reports: Hx Arthritis - KNEES Sensory History: Reports: Hx Contacts or Glasses - glasses Denies: Hx Hearing Aid Opthamlomology History: Reports: Hx Contacts or Glasses - glasses Neurological History: Reports: Other Neuro Impairments/Disorders - TIC- UPPER HALF OF BODY SHAKES LASTS A COUPLE OF SECONDS Denies: Hx Dementia, Hx Seizures Psychiatric History: Denies: Hx Panic Disorder, Hx Substance Abuse - Surgical History Surgery Procedure, Year, and Place: left ankle x2, gastric bypass. Hx Anesthesia Reactions: No Infectious Disease History: No Infectious Disease History: Denies: Hx Hepatitis, Hx Human Immunodeficiency Virus (HIV), Traveled Outside the [place] in Last 30 Days - Family History Known Family History: Positive: Diabetes - father, Other - Mother: brain tumor - Social History Occupation: Employed Full-time Lives: With Family Alcohol Use: None Hx Substance Use: No Substance Use Type: Reports: None Hx Tobacco Use: Yes Smoking Status (MU): Former Smoker Amount Used/How Often: 1 PPD X 2 YEARS Have You Smoked in the Last Year: No Review of Systems Negative: Fever Positive: Abdominal Pain, Nausea. Negative: Vomiting Musculoskeletal: Negative - back pain All Other Systems Reviewed And Are Negative: Yes Physical Exam - Summary Physical Exam Summary: VITAL SIGNS: Reviewed. GENERAL: Patient is a well-developed and nourished FEMALE who is lying comfortable in the stretcher. Patient is not in any acute respiratory distress. HEAD AND FACE: No signs of trauma. No ecchymosis, hematomas or skull depressions. No sinus tenderness. EYES: PERRLA, EOMI x 2, No injected conjunctiva, no nystagmus. EARS: Hearing grossly intact. Ear canals and tympanic membranes are within normal limits. MOUTH: Oropharynx within normal limits. NECK: Supple, trachea is midline, no adenopathy, no JVD, no carotid bruit, no c- spine tenderness, neck with full ROM. CHEST: Symmetric, no tenderness at palpation LUNGS: Clear to auscultation bilaterally. No wheezing or crackles. CVS: Regular rate and rhythm, S1 and S2 present, no murmurs or gallops appreciated. ABDOMEN: Soft. No signs of distention. No rebound no guarding, and no masses palpated. Bowel sounds are normal. Suprapubic tenderness. Steristrips over laparoscopic scars. EXTREMITIES: FROM in all major joints, no edema, no cyanosis or clubbing. NEURO: Alert and oriented x 3. No acute neurological deficits. Speech is normal and follows commands. SKIN: Dry and warm Triage Information Reviewed: Yes Vital Signs On Initial Exam: Initial Vitals Temp Pulse Resp BP Pulse Ox 98.9 F 102 24 115/69 100 01/30/18 21:23 01/30/18 21:23 01/30/18 21:23 01/30/18 21:23 01/30/18 21:23 Vital Signs Reviewed: Yes Diagnostics - Vital Signs Vital Signs Temp Pulse Resp BP Pulse Ox 01/30/18 21:39 89 107/71 96 01/30/18 21:32 97 113/76 99 01/30/18 21:23 98.9 F 102 24 115/69 100 - Laboratory Result Diagrams: 01/30/18 22:16 01/30/18 22:16 Lab Statement: Any lab studies that have been ordered have been reviewed, and results considered in the medical decision making process. - Additional Comments Diagnostic Additional Comments: US reveals: Moderate diffuse thickening of the endometrial stripe with mild endometrial fluid. No viable intrauterine gestational sac is visualized. No distinct pole, yolk sac, or cardiac activity. 3.9 cm* 2.2 cm* 2.4 cm echogenic lesion in the lower portion of endometrial stripe, potentially representing a demised gestational sac. Ectopic is not excluded. Enlarged left ovary containing a complex cyst which was not fully measured. 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 Duplex US: Appropriate arterial and/or venous flow is noted in the left ovary, making torsion unlikely at this time. Mild free pelvic fluid. Re-Evaluation - Re-Evaluation First Eval Re-Evaluation Time: 23:04 Change: Improved - Davina present during pelvic exam. Pelvic exam reveals blood clot in vagina which was removed by using suction. Cervix was opened and there was product of conception in cervical opening. Using ovum forceps the product of conception was completely removed. After removal, the pts bleeding and cramping improved. Product was collected in a sterile cup and will be sent to pathology. Second Eval Re-Evaluation Time: 23:48 Change: Improved - Pt has minimal bleeding at this time. She is still having cramps. The pt will be discharged with percocet and methergine. Abdominal Pain Fem Course/Dx - Course Course Of Treatment: The pt is a 37 y/o F presenting to the ED with c/o abd pain that began at 21:00 today. At 22:00, ED physician spoke to Dr. Payton who suggested pt get US and blood work prior to evaluation. Pt has minimal bleeding at time of discharge. She is still having cramps. The pt will be discharged with percocet and methergine. - Diagnoses Provider Diagnoses: Complete - Provider Notifications Discussed Care Of Patient With: Tatianna Payton Time Discussed With Above Provider: 22:00 - Suggesting US and blood work prior to evaluation. Discharge - Sign-Out/Discharge Documenting (check all that apply): Discharge/Admit/Transfer - Discharge - Discharge Plan Condition: Stable Disposition: HOME Prescriptions: Methylergonovine TAB* [Methergine TAB*] 0.2 mg PO TID #5 tab Oxycodone HCl/Acetaminophen [Percocet 5-325 mg Tablet] 1 each PO Q6HR PRN #14 tablet MDD 4 PRN Reason: Pain Patient Education Materials: Miscarriage (ED) Referrals: Gian Hou MD [Primary Care Provider] - 4 Days Additional Instructions: Return to the ED for new or worsening symptoms. The documentation as recorded by the Magdy womack Stephanie accurately reflects the service I personally performed and the decisions made by , Leslie Minor MD.
--- NOTE | 2018-01-31 07:41 | RAD ---
INDICATION: Early with bleeding. Recent left ovarian torsion COMPARISON: January 27, 2018 TECHNIQUE: Transvaginal scans were obtained for evaluation FINDINGS: There is prominent endometrial reactive change and probable blood products in the lower uterine segment. There is no visualization of an intrauterine gestation on the current examination. Suggest correlation with serial beta-hCGs and follow-up ultrasonography to assess for probable demise. There is no free fluid or adnexal mass. 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 The left ovary measures 8.1 x 4.3 x 7.5 cm there are no findings of torsion. There is a complex cyst in the left ovary measuring 3.9 x 2.6 x 2.6 cm. There is a small amount of free fluid. IMPRESSION: NO EVIDENCE OF INTRAUTERINE GESTATION. SUGGEST CORRELATION WITH SERUM BETA HCGS AND FOLLOW-UP ULTRASONOGRAPHY. ENLARGED LEFT OVARY WITH A COMPLEX CYST. NO FINDINGS OF TORSION. ABSENT RIGHT OVARY
== END 2018-01-31 00:10 | disposition home or self-care (01) ==
LOC: ED 21:21
DX: O03.9 Complete or unspecified spontaneous abortion without complication (principal); Q50.01 Congenital absence of ovary, unilateral; N83.202 Unspecified ovarian cyst, left side; Z98.84 Bariatric surgery status; Z87.891 Personal history of nicotine dependence
CPT/HCPCS: 36415; 76815; 80053; 84702; 85025; 86850; 86900; 86901; 88305; 96361; 96372; 96374; 96375; 96376; 99284; J2210; J2270; J2765

== ENCOUNTER 2018-02-01 13:12 | Emergency (ER) | payer BC ==
[2018-02-01] MEDS ORDERED: Morphine VIAL* 4 MG/ML VIAL (1 ml vial) IV ONE (13:47)
[2018-02-01] MEDS ORDERED: NS 0.9% 1000 ML* 1,000 ML IV ONE ×2 (13:47→14:19)
[2018-02-01] MEDS ORDERED: Ondansetron ODT TAB* 4 MG PO ONE (13:48)
[2018-02-01 14:16] LABS: ABS Basophils 0 10^3/ul (0-0.2); ABS Eosinophils 0.2 10^3/ul (0-0.6); ABS Lymphocytes 1.2 10^3/ul (1.0-4.8); ABS Monocytes 0.9 10^3/ul (0-0.8); ABS Neutrophils 12.7 10^3/ul (1.5-7.7); ABS Nucleated RBC 0 10^3/ul; Eosinophil % 1.6 % (0-6); Hematocrit 36 % (35-47); Hemoglobin 12.2 g/dl (12.0-16.0); Lymphocyte % 7.8 % (25-47); Mean Corpuscular HGB Conc 34 g/dl (31-36); Mean Corpuscular Hemoglobin 30 pg (27-31); Mean Corpuscular Volume 88 fL (80-97); Nucleated Red Blood Cells % 0.1; Platelet Count 267 10^3/ul (150-450); Red Blood Count 4.09 10^6/ul (4.00-5.40); Red Cell Distribution Width 13 % (10.5-15)
[2018-02-01 14:28] LABS: EGFR Non-African American 149.9 (>60)
--- NOTE | 2018-02-01 14:57 | RAD ---
HISTORY: r/o RPOC, history of congenitally absent right ovary COMPARISONS: July 11, 2018 TECHNIQUE: Multiple transverse and longitudinal ultrasound images were obtained of the pelvis using grayscale, color Doppler, and spectral Doppler imaging using the transabdominal transducer. FINDINGS: UTERUS: The uterus measures 15.2 x 7.5 x 8.1 cm. The uterus is mildly enlarged consistent with the recent gravid state. ENDOMETRIUM: The endometrium is thickened and heterogeneous, without internal vascularity to suggest retained products of conception.. The endometrium measures 3.6 cm in thickness. CUL-DE-SAC: There is no free fluid within the cul-de-sac. RIGHT OVARY: The right ovary is not visualized. LEFT OVARY: The left ovary measures 8.9 x 4.9 x 3.3 cm. There is a 2.8 x 2.4 x 2.7 cm complicated cysts suggestive of a hemorrhagic cyst with retracting clot versus corpus luteum. Normal arterial and venous waveforms are identifiable within the ovary on spectral Doppler imaging. BLADDER: The bladder is not well visualized. OTHER: None IMPRESSION: THICKENED, HETEROGENEOUS ENDOMETRIUM MEASURING UP TO 3.6 CM. THERE IS NO INTERNAL VASCULARITY TO SUGGEST RETAINED PRODUCTS OF CONCEPTION.
[2018-02-01] MEDS ORDERED: DOXYcycline CAP(*) 100 MG PO ONE (15:49)
--- NOTE | 2018-02-01 15:50 | ED ---
Abdominal Pain/Female - HPI Summary HPI Summary: Pt. is a 37 y.o female who presents to the ER for worsening vaginal bleeding and pelvic pain. Pt. was admitted over the weekend for a left ovarian torsion. Ovary was de-torsed in the OR. Pt. is also around 9 weeks . She returned to the ER 01/30 for increased vaginal bleeding and pain and was found to be having a miscarriage. Pt. presents today because pelvic pain and bleeding are not improving. She otherwise denies fever, chills, N/V. Symptoms are moderate in severity. Pain is constant without modifying factors. - History of Current Complaint Chief Complaint: EDAbdPain Stated Complaint: OB PROBLEMS Time Seen by Provider: 02/01/18 13:36 Hx Obtained From: Patient, Family/Roll Forming Machine Set Up Mechanic Pain Intensity: 10 Allergies/Adverse Reactions: Allergies Allergy/AdvReac Type Severity Reaction Status Date / Time No Known Allergies Allergy Verified 01/27/18 17:37 PMH/Surg Hx/FS Hx/Imm Hx Previously Healthy: Yes Endocrine/Hematology History: Denies: Hx Anticoagulant Therapy, Hx Diabetes, Hx Thyroid Disease Cardiovascular History: Denies: Hx Congestive Heart Failure, Hx Hypertension, Hx Pacemaker/ICD Respiratory History: Denies: Hx Asthma, Hx Chronic Obstructive Pulmonary Disease (COPD) History: Denies: Hx Renal Disease Musculoskeletal History: Reports: Hx Arthritis - KNEES Sensory History: Reports: Hx Contacts or Glasses - glasses Denies: Hx Hearing Aid Opthamlomology History: Reports: Hx Contacts or Glasses - glasses Neurological History: Reports: Other Neuro Impairments/Disorders - TIC- UPPER HALF OF BODY SHAKES LASTS A COUPLE OF SECONDS Denies: Hx Dementia, Hx Seizures Psychiatric History: Denies: Hx Panic Disorder, Hx Substance Abuse - Surgical History Surgery Procedure, Year, and Place: left ankle x2, gastric bypass. Hx Anesthesia Reactions: No Infectious Disease History: No Infectious Disease History: Denies: Hx Hepatitis, Hx Human Immunodeficiency Virus (HIV), Traveled Outside the [place] in Last 30 Days - Family History Known Family History: Positive: None, Diabetes - father, Other - Mother: brain tumor - Social History Occupation: Employed Full-time Lives: With Family Alcohol Use: None Hx Substance Use: No Substance Use Type: Reports: None Hx Tobacco Use: Yes Smoking Status (MU): Former Smoker Amount Used/How Often: 1 PPD X 2 YEARS Have You Smoked in the Last Year: No Review of Systems Constitutional: Negative Negative: Fever, Chills Positive: Abdominal Pain. Negative: Vomiting, Diarrhea, Nausea Positive: other - vaginal bleeding All Other Systems Reviewed And Are Negative: Yes Physical Exam Triage Information Reviewed: Yes Vital Signs On Initial Exam: Initial Vitals Temp Pulse Resp BP Pulse Ox 98.2 F 92 17 111/72 98 02/01/18 13:14 02/01/18 13:14 02/01/18 13:14 02/01/18 13:14 02/01/18 13:14 Vital Signs Reviewed: Yes Appearance: Positive: Pain Distress - Pt. lying on bed on her left side, appears in pain but nontoxic. present. Skin: Positive: Warm, Dry Head/Face: Positive: Normal Head/Face Inspection Eyes: Positive: Normal Neck: Positive: Supple Respiratory/Lung Sounds: Positive: Clear to Auscultation, Breath Sounds Present Cardiovascular: Positive: Normal, RRR Abdomen Description: Positive: Other: - Diffuse tenderness to light palpation. Majority of pain is to the RLQ. Guarding.. Negative: Peritoneal Signs Neurological: Positive: Normal, CN Intact II-III Psychiatric: Positive: Affect/Mood Appropriate Diagnostics - Vital Signs Vital Signs Temp Pulse Resp BP Pulse Ox 02/01/18 15:09 104/63 02/01/18 14:44 18 02/01/18 14:41 124/60 02/01/18 14:12 100 100 02/01/18 14:10 96 89/60 99 02/01/18 13:14 98.2 F 92 17 111/72 98 - Laboratory Lab Results: Lab Results 02/01/18 02/01/18 02/01/18 Range/Units 14:02 14:02 14:02 WBC 15.0 H (3.5-10.8) 10^3/ul RBC 4.09 (4.00-5.40) 10^6/ul Hgb 12.2 (12.0-16.0) g/dl Hct 36 (35-47) % MCV 88 (80-97) fL MCH 30 (27-31) pg MCHC 34 (31-36) g/dl RDW 13 (10.5-15) % Plt Count 267 (150-450) 10^3/ul MPV 8.0 (7.4-10.4) um3 Neut % (Auto) 84.3 H (38-83) % Lymph % (Auto) 7.8 L (25-47) % [place] % (Auto) 6.1 (0-7) % Eos % (Auto) 1.6 (0-6) % Baso % (Auto) 0.2 (0-2) % Absolute Neuts (auto) 12.7 H (1.5-7.7) 10^3/ul Absolute Lymphs (auto) 1.2 (1.0-4.8) 10^3/ul Absolute Monos (auto) 0.9 H (0-0.8) 10^3/ul Absolute Eos (auto) 0.2 (0-0.6) 10^3/ul Absolute Basos (auto) 0 (0-0.2) 10^3/ul Absolute Nucleated RBC 0 10^3/ul Nucleated RBC % 0.1 Sodium 137 L (139-145) mmol/L Potassium 3.6 (3.5-5.0) mmol/L Chloride 102 (101-111) mmol/L Carbon Dioxide 26 (22-32) mmol/L Anion Gap 9 (2-11) mmol/L BUN 7 (6-24) mg/dL Creatinine 0.47 L (0.51-0.95) mg/dL Est GFR ( Amer) 192.8 (>60) Est GFR (Non-Af Amer) 149.9 (>60) BUN/Creatinine Ratio 14.9 (8-20) Glucose 105 H (70-100) mg/dL Lactic Acid 0.8 (0.5-2.0) mmol/L Calcium 9.8 (8.6-10.3) mg/dL Total Bilirubin 0.80 (0.2-1.0) mg/dL AST 9 L (13-39) U/L ALT 5 L (7-52) U/L Alkaline Phosphatase 49 (34-104) U/L C-React Prot High Sens 177.56 mg/L Total Protein 6.9 (6.4-8.9) g/dL Albumin 3.8 (3.2-5.2) g/dL Globulin 3.1 (2-4) g/dL Albumin/Globulin Ratio 1.2 (1-3) Result Diagrams: 02/01/18 14:02 02/01/18 14:02 Lab Statement: Any lab studies that have been ordered have been reviewed, and results considered in the medical decision making process. Abdominal Pain Fem Course/Dx - Course Course Of Treatment: Patient presenting with ongoing pelvic pain and vaginal bleeding after a recent ovarian torsion as well as a miscarriage. She is afebrile stable vital signs. Blood work was ordered. Patient was started on IV fluids and given a dose of morphine for pain. Patient's OB, Dr. Mon, was immediately consulted after patient was evaluated she would like blood work sent a repeat ultrasound. She states she is just coming in to the OR and will provide palpation the ER when she is out. Blood work shows a leukocytosis of 15 ,000. Stable H&H. Pelvic ultrasound shows a thickened, hetergeneous endometrium measuring up to 3.6 cm. There is no internal vascularity to suggest retained products of conception, or normal flow to left ovary, reading per radiology. Dr. Mon examined palpation in the ER around 1550. She removed a large mass of products of conception and patient's pain instantly improved. Specimen sent to the lab for testing. She would like to start patient on doxycycline, first dose given in the ER. Pt. to call Dr. Mckeon's office for a close f.u apt. To continue medications as directed. To return to ER if symptoms change or worsen. Pt. and family understand and agree with plan. Pt. dc home stable with . - Diagnoses Differential Diagnosis: Positive: Pelvic Inflammatory Disease, , Urinary Tract Infection Provider Diagnoses: Miscarriage Discharge - Sign-Out/Discharge Documenting (check all that apply): Discharge/Admit/Transfer - Discharge Plan Condition: Good Disposition: HOME Prescriptions: DOXYcycline CAP(*) [DOXYcycline 100MG CAP(*)] 100 mg PO BID #20 cap Patient Education Materials: Miscarriage (ED) Referrals: Jace Mckeon MD [Medical Doctor] - Gian Hou MD [Primary Care Provider] - Additional Instructions: Call Dr. Mckeon's office tomorrow to schedule a follow up appointment Take antibiotics as directed Tylenol or Motrin for pain as directed Return to ER for fever, vomiting, increased bleeding or pain, or if concerned - Billing Disposition and Condition Condition: GOOD Disposition: Home
[2018-02-01 16:20] VITALS: BP 110/70
--- NOTE | 2018-02-02 03:21 | CONS ---
CONSULTATION REPORT: DATE OF CONSULT: 02/01/18 REASON FOR CONSULTATION: Vaginal bleeding. HISTORY OF PRESENT ILLNESS: The patient is a 37-year-old, 5, para 3-0-2 -3, who comes in with reporting a miscarriage on 01/30/18. The patient notes that today, she developed increased cramping and bleeding. She was seen initially in her order entry clerk's office and then was sent over to the emergency room for further evaluation. In the emergency room, the patient was found to have a hemoglobin of 12.2 and an ultrasound was performed, which revealed 3.5 endometrial thickness with no sac or vascularity consistent with an intrauterine prior. The patient had been 9 weeks . The patient is Rh positive and notes waves of back pain and cramping. PAST MEDICAL HISTORY: Noted for 2009, ankle surgery; 2017, Jordi-en-Y gastric bypass surgery. PAST OB HISTORY: Positive for gestational diabetes, vaginal delivery x3, full term. REVIEW OF SYSTEMS: Positive bleeding and cramping. PHYSICAL EXAM: Vital signs: Temperature is 98.5, pulse 71, blood pressure 110/ 70. O2 sat 99%. Abdomen: Soft, mild tenderness above the uterus. No rebound, no guarding. Pelvic exam: External genitalia without lesions or masses. Vagina with a large approximately 8 cm blood clot in the vagina. Cervix appears to be open. Speculum removed. Approximately 10 x 4 cm mass removed from the vagina and external cervical os consistent with the products of conception. After removal of this, the patient notes pain is better and is not getting the cramping and bleeding is diminished. Extremities: Nontender. ASSESSMENT AND PLAN: The patient is a 5, para 3-0-2-3, who comes in with spontaneous of at 9 weeks. Products of conception found within the vagina and the external cervical os removed without difficulty with resolution of back pain and discomfort. The patient will take a short course of doxycycline 100 mg p.o. b.i.d. for 3 days. She will use ibuprofen for cramping pain. She will follow up immediately if she has bleeding more than a pad an hour and will follow with her primary BUSINESS UNIT LEADER, Dr. Mckeon, this coming week. Reviewed precaution with the patient and the patient will follow up as needed with the on-call service, but will follow up next week with her primary OB. Length of time spent face to face with the patient was greater than 50 minutes. [id number]/[facility] #: [id number] [place]
== END 2018-02-01 16:19 | disposition home or self-care (01) ==
LOC: ED 13:12
DX: O03.9 Complete or unspecified spontaneous abortion without complication (principal); Z3A.09 9 weeks gestation of pregnancy; Z86.32 Personal history of gestational diabetes; Z98.84 Bariatric surgery status; Z87.891 Personal history of nicotine dependence
CPT/HCPCS: 36415; 76856; 80053; 83605; 85025; 86141; 88305; 96361; 96374; 99283; A9270-GY; J2270